=== PATIENT | male | born 1985 | race Caucasian/White ===

== ENCOUNTER → 2022-04-10 06:37 | Outpatient (CLI) | payer OTHER, BC, SELFPAY | PROVIDERS: PCP Nurse Practitioner; Visit Provider Nurse Practitioner | DX: S60.455A Superficial foreign body of left ring finger, initial encounter (principal); L08.9 Local infection of the skin and subcutaneous tissue, unspecified; B96.89 Other specified bacterial agents as the cause of diseases classified elsewhere | CPT/HCPCS: 87070; 87077; 87205 ==

== ENCOUNTER → 2023-07-14 08:32 | Outpatient (CLI) | payer OTHER, BC, SELFPAY ==
[2023-07-14 21:20] LABS: Influenza A, PCR Not Detected (NotDetected); Influenza B, PCR Not Detected (NotDetected)
[2023-07-14 22:30] LABS: Coronavirus 19, PCR Detected (NotDetected)
== END ==
PROVIDERS: PCP Nurse Practitioner; Visit Provider Nurse Practitioner
DX: R51.9 Headache, unspecified (principal); U07.1 COVID-19
CPT/HCPCS: 87636